=== PATIENT | female | born 1955 | race American Indian/Alaskan Native ===

== ENCOUNTER 2022-03-17 07:33 | Emergency (ER) | payer MEDICARE ==
--- NOTE | 2022-03-17 09:00 | Emergency Department Report ---
ED Medical Clearance HPI - General Chief complaint: Medical Clearance Stated complaint: MEDICAL CLEARANCE FOR REHAB Time Seen by Provider: 03/17/22 08:59 Source: patient, EMS Mode of arrival: Stretcher Limitations: No Limitations - History of Present Illness Initial comments: PT PICKED UP FROM [facility]-NEED MED CLEARANCE FOR [facility] RE[facility]. LAST USE 2 D AYS AGO, WHEN ASKED HOW OFTEN PT USES [facility], STATED "WHENEVER I CAN". Complaint: medical clearance request -: Gradual Alledged Intoxication: No Compliant with Home Medications: Yes Traumatic Symptoms: denies traumatic injury Treatments Prior to Arrival: none Home medications: Home Medications Medication Instructions Recorded Confirmed Last Taken Amlodipine Besylate [Norvasc] 03/30/13 03/30/13 06/14/13 09:00 glipiZIDE [glipiZIDE ER] 5 mg PO QAM 03/30/13 03/30/13 06/14/13 09:00 Gabapentin [Neurontin] 200 mg PO BID 06/14/13 06/14/13 06/09/13 Previous Rx's Medication Instructions Recorded Last Taken Type Benzonatate [Tessalon Perle] 100 mg PO TID PRN #14 capsule 06/15/13 Unknown Rx Butalb/Acetamin/Caff 50-325-40 1 each PO Q4H PRN #20 tablet 06/15/13 Unknown Rx [Fioricet] Allergies/Adverse reactions: Allergies Allergy/AdvReac Type Severity Reaction Status Date / Time ibuprofen [From Motrin] Allergy Anaphylaxis Verified 03/17/22 07:47 NSAIDS (Non-Steroidal Allergy Anaphylaxis Verified 03/17/22 07:47 Anti-Inflamma ED Review of Systems ROS: Stated complaint: MEDICAL CLEARANCE FOR REHAB Other details as noted in HPI Comment: All other systems reviewed and negative ED Past Medical Hx - Past Medical History Previous Medical History?: Yes Hx Hypertension: Yes Hx CVA: No Hx Heart Attack/AMI: No Hx Congestive Heart Failure: No Hx Diabetes: Yes Hx Deep Vein Thrombosis: No Hx Pulmonary Embolism: No Hx GERD: No Hx Liver Disease: No Hx Renal Disease: No Hx Sickle Cell Disease: No Hx Arthritis: No Hx Headaches / Migraines: No Hx Seizures: No Hx Kidney Stones: No Hx Psychiatric Treatment: No Hx Asthma: No Hx COPD: No Hx Tuberculosis: No Hx Dementia: No Hx HIV: No - Surgical History Past Surgical History?: Yes Hx Coronary Stent: No Hx Open Heart Surgery: No Hx Pacemaker: No Hx Internal Defibrillator: No Hx Cholecystectomy: No Hx Appendectomy: No Hx Breast Surgery: No Additional Surgical History: Right wrist Surgery 2009 - Family History Family history: no significant - Social History Smoking Status: Current Every Day Smoker Substance Use Type: None - Medications Home Medications: Home Medications Medication Instructions Recorded Confirmed Last Taken Type Amlodipine Besylate [Norvasc] 03/30/13 03/30/13 06/14/13 09:00 History glipiZIDE [glipiZIDE ER] 5 mg PO QAM 03/30/13 03/30/13 06/14/13 09:00 History Gabapentin [Neurontin] 200 mg PO BID 06/14/13 06/14/13 06/09/13 History Benzonatate [Tessalon Perle] 100 mg PO TID PRN #14 capsule 06/15/13 Unknown Rx Butalb/Acetamin/Caff 50-325-40 1 each PO Q4H PRN #20 tablet 06/15/13 Unknown Rx [Fioricet] ED Physical Exam - General Limitations: No Limitations General appearance: alert, in no apparent distress - Head Head exam: Present: atraumatic, normocephalic - Eye Eye exam: Present: normal appearance - ENT ENT exam: Present: mucous membranes moist - Neck Neck exam: Present: normal inspection - Respiratory Respiratory exam: Present: normal lung sounds bilaterally. Absent: respiratory distress - Cardiovascular Cardiovascular Exam: Present: regular rate, normal rhythm. Absent: systolic murmur, diastolic murmur, rubs, gallop - GI/Abdominal GI/Abdominal exam: Present: soft, normal bowel sounds - Extremities Exam Extremities exam: Present: normal inspection - Back Exam Back exam: Present: normal inspection - Neurological Exam Neurological exam: Present: alert, oriented X3 - Psychiatric Psychiatric exam: Present: normal affect, normal mood - Skin Skin exam: Present: warm, dry, intact, normal color. Absent: rash ED Course Vital Signs 03/17/22 07:45 Temperature 98.3 F Pulse Rate 75 Respiratory 14 Rate Blood Pressure 225/102 [Left] O2 Sat by Pulse 99 Oximetry ED Medical Decision Making - Lab Data Result diagrams: 03/17/22 09:08 03/17/22 09:08 - Medical Decision Making Vital Signs 03/17/22 07:45 Temperature 98.3 F Pulse Rate 75 Respiratory 14 Rate Blood Pressure 225/102 [Left] O2 Sat by Pulse 99 Oximetry Lab Results 03/17/22 03/17/22 03/17/22 Range/Units 09:08 09:08 09:08 WBC 4.7 (4.5-11.0) K/mm3 RBC 3.88 (3.65-5.03) M/mm3 Hgb 11.6 (10.1-14.3) gm/dl Hct 35.4 (30.3-42.9) % MCV 91 (79-97) fl MCH 30 (28-32) pg MCHC 33 (30-34) % RDW 15.5 H (13.2-15.2) % Plt Count 230 (140-440) K/mm3 Lymph % (Auto) 23.6 (13.4-35.0) % [place] % (Auto) 8.8 H (0.0-7.3) % Eos % (Auto) 4.1 (0.0-4.3) % Baso % (Auto) 1.1 (0.0-1.8) % Lymph # (Auto) 1.1 L (1.2-5.4) K/mm3 [place] # (Auto) 0.4 (0.0-0.8) K/mm3 Eos # (Auto) 0.2 (0.0-0.4) K/mm3 Baso # (Auto) 0.1 (0.0-0.1) K/mm3 Seg Neutrophils % 62.4 (40.0-70.0) % Seg Neutrophils # 2.9 (1.8-7.7) K/mm3 Sodium 138 (137-145) mmol/L Potassium 3.9 (3.6-5.0) mmol/L Chloride 104.2 (98-107) mmol/L Carbon Dioxide 20 L (22-30) mmol/L Anion Gap 18 mmol/L BUN 27 H (7-17) mg/dL Creatinine 2.2 H (0.6-1.2) mg/dL Estimated GFR 27 ml/min BUN/Creatinine Ratio 12 % Glucose 97 (65-100) mg/dL Calcium 8.5 (8.4-10.2) mg/dL Total Bilirubin 0.90 (0.1-1.2) mg/dL AST 39 (5-40) units/L ALT 26 (7-56) units/L Alkaline Phosphatase 223 H (35-129) units/L Total Protein 8.0 (6.3-8.2) g/dL Albumin 3.5 L (3.9-5) g/dL Albumin/Globulin Ratio 0.8 % TSH 2.390 (0.270-4.200) mlU/mL Salicylates (2.8-20.0) mg/dL Acetaminophen (10.0-30.0) ug/mL Plasma/Serum Alcohol (0-0.07) % 03/17/22 03/17/22 03/17/22 Range/Units 09:08 09:08 09:08 WBC (4.5-11.0) K/mm3 RBC (3.65-5.03) M/mm3 Hgb (10.1-14.3) gm/dl Hct (30.3-42.9) % MCV (79-97) fl MCH (28-32) pg MCHC (30-34) % RDW (13.2-15.2) % Plt Count (140-440) K/mm3 Lymph % (Auto) (13.4-35.0) % [place] % (Auto) (0.0-7.3) % Eos % (Auto) (0.0-4.3) % Baso % (Auto) (0.0-1.8) % Lymph # (Auto) (1.2-5.4) K/mm3 [place] # (Auto) (0.0-0.8) K/mm3 Eos # (Auto) (0.0-0.4) K/mm3 Baso # (Auto) (0.0-0.1) K/mm3 Seg Neutrophils % (40.0-70.0) % Seg Neutrophils # (1.8-7.7) K/mm3 Sodium (137-145) mmol/L Potassium (3.6-5.0) mmol/L Chloride (98-107) mmol/L Carbon Dioxide (22-30) mmol/L Anion Gap mmol/L BUN (7-17) mg/dL Creatinine (0.6-1.2) mg/dL Estimated GFR ml/min BUN/Creatinine Ratio % Glucose (65-100) mg/dL Calcium (8.4-10.2) mg/dL Total Bilirubin (0.1-1.2) mg/dL AST (5-40) units/L ALT (7-56) units/L Alkaline Phosphatase (35-129) units/L Total Protein (6.3-8.2) g/dL Albumin (3.9-5) g/dL Albumin/Globulin Ratio % TSH (0.270-4.200) mlU/mL Salicylates < 0.3 L (2.8-20.0) mg/dL Acetaminophen 5.0 L (10.0-30.0) ug/mL Plasma/Serum Alcohol < 0.01 (0-0.07) % ED Disposition Clinical Impression: Medical clearance for psychiatric admission Disposition: 30 STILL A PATIENT Is pt being admited?: No Does the pt Need Aspirin: No Condition: Stable Time of Disposition: 17:00
[2022-03-17 09:35] LABS: Basophils # (Auto) 0.1 K/mm3 (0.0-0.1); Basophils % (Auto) 1.1 % (0.0-1.8); Eosinophils # (Auto) 0.2 K/mm3 (0.0-0.4); Eosinophils % (Auto) 4.1 % (0.0-4.3); Hematocrit 35.4 % (30.3-42.9); Hemoglobin 11.6 gm/dl (10.1-14.3); Lymphocytes # (Auto) 1.1 K/mm3 (1.2-5.4); Lymphocytes % (Auto) 23.6 % (13.4-35.0); Mean Corpuscular HGB Conc 33 % (30-34); Mean Corpuscular Volume 91 fl (79-97); Monocytes # (Auto) 0.4 K/mm3 (0.0-0.8); Monocytes % (Auto) 8.8 % (0.0-7.3); Platelet Count 230 K/mm3 (140-440); Red Blood Count 3.88 M/mm3 (3.65-5.03); Red Cell Distribution Width 15.5 % (13.2-15.2)
[2022-03-17 09:56] LABS: Albumin 3.5 g/dL (3.9-5); Calcium 8.5 mg/dL (8.4-10.2)
[2022-03-18] MEDS ORDERED: MORPHINE 2 MG/1 ML INJ IM ONE (02:45)
[2022-03-18] MEDS ORDERED: ONDANSETRON 4 MG/2 ML INJ IM ONE (02:46)
--- NOTE | 2022-03-18 02:54 | Emergency Department Report ---
ED Medical Clearance HPI - General Chief complaint: Medical Clearance Stated complaint: MEDICAL CLEARANCE FOR REHAB Time Seen by Provider: 03/17/22 08:59 Source: patient, EMS Mode of arrival: Stretcher - History of Present Illness Initial comments: 66 yo F who present with medical clearance as she reports depression and anxiety. Pt also mentioned that she slipped and fell while trying to sit on a chair. She recently fall around 8/4 and was diagnosed with fx L4 &5 and still we aring brace. No urinary retention or bowel loss reported. No other modifying or associated factors noted. Alledged Intoxication: No Compliant with Home Medications: Yes Traumatic Symptoms: denies traumatic injury Treatments Prior to Arrival: none Home medications: Home Medications Medication Instructions Recorded Confirmed Last Taken Amlodipine Besylate [Norvasc] 03/30/13 03/30/13 06/14/13 09:00 glipiZIDE [glipiZIDE ER] 5 mg PO QAM 03/30/13 03/30/13 06/14/13 09:00 Gabapentin [Neurontin] 200 mg PO BID 06/14/13 06/14/13 06/09/13 Previous Rx's Medication Instructions Recorded Last Taken Type Benzonatate [Tessalon Perle] 100 mg PO TID PRN #14 capsule 06/15/13 Unknown Rx Butalb/Acetamin/Caff 50-325-40 1 each PO Q4H PRN #20 tablet 06/15/13 Unknown Rx [Fioricet] Allergies/Adverse reactions: Allergies Allergy/AdvReac Type Severity Reaction Status Date / Time ibuprofen [From Motrin] Allergy Anaphylaxis Verified 03/17/22 07:47 NSAIDS (Non-Steroidal Allergy Anaphylaxis Verified 03/17/22 07:47 Anti-Inflamma ED Review of Systems ROS: Stated complaint: MEDICAL CLEARANCE FOR REHAB Other details as noted in HPI Comment: All other systems reviewed and negative Musculoskeletal: back pain Psychiatric: anxiety, depression ED Past Medical Hx - Past Medical History Previous Medical History?: Yes Hx Hypertension: Yes Hx CVA: No Hx Heart Attack/AMI: No Hx Congestive Heart Failure: No Hx Diabetes: Yes Hx Deep Vein Thrombosis: No Hx Pulmonary Embolism: No Hx GERD: No Hx Liver Disease: No Hx Renal Disease: No Hx Sickle Cell Disease: No Hx Arthritis: No Hx Headaches / Migraines: No Hx Seizures: No Hx Kidney Stones: No Hx Psychiatric Treatment: No Hx Asthma: No Hx COPD: No Hx Tuberculosis: No Hx Dementia: No Hx HIV: No - Surgical History Past Surgical History?: Yes Hx Coronary Stent: No Hx Open Heart Surgery: No Hx Pacemaker: No Hx Internal Defibrillator: No Hx Cholecystectomy: No Hx Appendectomy: No Hx Breast Surgery: No Additional Surgical History: Right wrist Surgery 2009 - Social History Smoking Status: Current Every Day Smoker Substance Use Type: None - Medications Home Medications: Home Medications Medication Instructions Recorded Confirmed Last Taken Type Amlodipine Besylate [Norvasc] 03/30/13 03/30/13 06/14/13 09:00 History glipiZIDE [glipiZIDE ER] 5 mg PO QAM 03/30/13 03/30/13 06/14/13 09:00 History Gabapentin [Neurontin] 200 mg PO BID 06/14/13 06/14/13 06/09/13 History Benzonatate [Tessalon Perle] 100 mg PO TID PRN #14 capsule 06/15/13 Unknown Rx Butalb/Acetamin/Caff 50-325-40 1 each PO Q4H PRN #20 tablet 06/15/13 Unknown Rx [Fioricet] ED Physical Exam - General Limitations: No Limitations General appearance: alert, in no apparent distress - Head Head exam: Present: atraumatic, normal inspection - Eye Eye exam: Present: normal appearance Pupils: Present: normal accommodation - ENT ENT exam: Present: normal exam, normal orophraynx, mucous membranes moist - Neck Neck exam: Present: normal inspection, full ROM. Absent: tenderness - Respiratory Respiratory exam: Present: normal lung sounds bilaterally. Absent: respiratory distress, accessory muscle use - Cardiovascular Cardiovascular Exam: Present: regular rate, normal rhythm, normal heart sounds - GI/Abdominal GI/Abdominal exam: Present: soft, normal bowel sounds. Absent: distended, tenderness - Extremities Exam Extremities exam: Present: normal inspection, normal capillary refill - Back Exam Back exam: Present: normal inspection, tenderness (paraspine mild tenderness ) - Neurological Exam Neurological exam: Present: alert, oriented X3 - Psychiatric Psychiatric exam: Present: normal affect, normal mood - Skin Skin exam: Present: warm, normal color ED Course Vital Signs 03/17/22 03/18/22 07:45 03:12 Temperature 98.3 F Pulse Rate 75 Respiratory 14 18 Rate Blood Pressure 225/102 [Left] O2 Sat by Pulse 99 Oximetry ED Medical Decision Making - Lab Data Result diagrams: 03/17/22 09:08 03/17/22 09:08 - Radiology Data FINDINGS: ALIGNMENT: No significant abnormality of alignment. VERTEBRAL BODIES: Compression deformity of L2 is demonstrated. Vertebral bodies otherwise appear intact. DISC SPACES: Negative disc phenomenon present at L1-2 and L3-4. POSTERIOR ELEMENTS AND CENTRAL CANAL: Minimal bony retropulsion at L1-L2. No severe central stenosis. Mild/moderate central stenosis at L4-5. SIGNIFICANT LEVEL BY LEVEL FINDINGS: No significant abnormality. INTRA THORACIC / INTRA-ABDOMINAL: Nonspecific twisting of mesenteric vessels. SOFT TISSUES AND MUSCULATURE: No significant abnormality. IMPRESSION: 1. L2 compression deformity with mild bony retropulsion of the posterior superior endplate at L1- L2. 2. Other findings as detailed. - Medical Decision Making here with feeling of depression and anxiety -- with fall and back pain with recent fx -- will order CT lumbar and routine psych labs with consult for mental evaluation -- given in the meantime morphine and zofran Lab reviewed and noted with slightly elevated BUN/Cr -- likely as a result of dehydration -- given ivf ns 1L bolus x 1-- CT lumbar noted with compression fx of L2 -- likely the same as noted on 02/26 after her initial fall-- Pt is cleared and ready to be evaluated by mental health... ED Disposition Clinical Impression: Medical clearance for psychiatric admission, Back pain at L4-L5 level Depression Qualifiers: Depression Type: unspecified Qualified Code(s): F32.A - Depression, unspecified Compression fracture of L2 lumbar vertebra Qualifiers: Encounter type: subsequent encounter Fracture healing: with routine healing Qualified Code(s): S32.020D - Wedge compression fracture of second lumbar vertebra, subsequent encounter for fracture with routine healing Disposition: [address] [place] [address] Is pt being admited?: No Does the pt Need Aspirin: No Condition: Stable
--- NOTE | 2022-03-18 03:11 | Cat Scan Report ---
CT LUMBAR SPINE WITHOUT CONTRAST INDICATION / CLINICAL INFORMATION: fall with lower back pain s/p recent L4-5 fx. TECHNIQUE: Axial CT images were obtained through the lumbar spine. Sagittal and coronal reformatted i mages were produced. All CT scans at this location are performed using CT dose reduction for ALARA by means of automated exposure control. COMPARISON: None available. FINDINGS: ALIGNMENT: No significant abnormality of alignment. VERTEBRAL BODIES: Compression deformity of L2 is demonstrated. Vertebral bodies otherwise appear inta ct. DISC SPACES: Negative disc phenomenon present at L1-2 and L3-4. POSTERIOR ELEMENTS AND CENTRAL CANAL: Minimal bony retropulsion at L1-L2. No severe central stenosis. Mild/moderate central stenosis at L4-5. SIGNIFICANT LEVEL BY LEVEL FINDINGS: No significant abnormality. INTRA THORACIC / INTRA-ABDOMINAL: Nonspecific twisting of mesenteric vessels. SOFT TISSUES AND MUSCULATURE: No significant abnormality. IMPRESSION: 1. L2 compression deformity with mild bony retropulsion of the posterior superior endplate at L1-L2. 2. Other findings as detailed. Signer Name: Daniel Khalil II, MD Signed: 03/18/2022 3:07 AM Workstation Name: [id number]
[2022-03-18] MEDS ORDERED: SODIUM CHLORIDE 0.9% 1000 ML 1,000 ML IV ONE (04:21)
[2022-03-18] MEDS ORDERED: oxyCODONE /ACETAMINOPHEN 5-325MG TAB PO ONE (05:56)
--- NOTE | 2022-03-18 12:37 | Consultation ---
History of Present Illness - Reason for Consult Consult date: 03/18/22 Reason for consult: mental health evaluation - History of Present Psychiatric Illness ED NOTE: 66 yo F who present with medical clearance as she reports depression and anxiety. Pt also mentioned that she slipped and fell while trying to sit on a chair. She recently fall around 02/26 and was diagnosed with fx L4 &5 and still wearing brace. No urinary retention or bowel loss reported. No other modifying or associated factors noted. Patient is a 66 year-old female w/o previous psych diagnoses or treatment who presents to the ER for "medical clearance to go to detox." Patient reports using 1-2 "Tylenol number 3" every day for the last 40 years. Patient reports taking her daughter's medications and various other sources. Patient reports feeling better now "I was detoxing really bad." Patient reports withdrawal symptoms of stomach cramps, diarrhea, cold sweats, and craving. Patient reports being "in lots of pain the last 2 days," following fracture of L5 and L4 vertebrae. Patient reports breaking her right arm 10 days ago. Patient denies depressive sx. Patient denies SI HI AVH. PAST PSYCHIATRIC HISTORY: Diagnoses: Opiate abuse Suicide attempts or Self-harm behavior: Denies Prior psychiatric hospitalizations: No Substance Abuse history: opiates Previous psychiatric medications tried: None Outpatient treatment: None PAST MEDICAL HISTORY: None reported Family Psychiatric History: None reported or documented SOCIAL HISTORY Marital Status: Living Arrangements: Lives with daughter Employment Status: Late 's SSI - unemployed Access to guns/weapons: Denies Education: 1 year college History of Abuse: No Legal History: Unknown REVIEW OF SYSTEMS Constitutional: Negative for weight loss ENT: Negative for stridor Respiratory: Negative for cough or hemoptysis All other systems reviewed and are negative MENTAL STATUS EXAMINATION General Appearance and Behavior: Age appropriate, good hygiene, wearing appropriate clothes, cooperative; wearing cast on left arm Cooperation: cooperative Psychomotor Behavior: Normal Mood: "better," Affect and affective range:congruent Thought Process:Goal directed Thought Content: Reality oriented Speech: Normal Intellectual Functioning: Average Suicidal Ideation: Denies Homicidal Ideation: Denies Hallucination: Denies Impulse Control: Normal Insight and Judgment: limited insight and poor judgment Memory: Intact Attention:Attentive Orientation: Alert and oriented Diagnoses: (1) Opiate abuse Treatment Plan: Continuing home meds Patient should be compliant with medications and not to use drugs and not to drink alcohol. PSYCHOTHERAPY: Supportive psychotherapy provided MEDICAL: Per primary team DELIRIUM PRECAUTIONS: Please re-orient patient frequently, keep lights on during the day, and minimize benzodiazepines and opiates as these medications could worsen patient's confusion. VETERINARIAN: Per medical team DISPOSITION: Do not recommend acute inpatient psychiatric hospitalization at this time. The plastic mould maker will provide patient with psychiatric outpatient resources. FOLLOW-UP: Will sign off. Thank you for the consult. Please contact with any questions and/or concerns. Case staffed with Dr. Shen Medications and Allergies Allergies Allergy/AdvReac Type Severity Reaction Status Date / Time ibuprofen [From Motrin] Allergy Anaphylaxis Verified 03/17/22 07:47 NSAIDS (Non-Steroidal Allergy Anaphylaxis Verified 03/17/22 07:47 Anti-Inflamma Home Medications Medication Instructions Recorded Confirmed Last Taken Type Amlodipine Besylate [Norvasc] 03/30/13 03/30/13 06/14/13 09:00 History glipiZIDE [glipiZIDE ER] 5 mg PO QAM 03/30/13 03/30/13 06/14/13 09:00 History Gabapentin [Neurontin] 200 mg PO BID 06/14/13 06/14/13 06/09/13 History Benzonatate [Tessalon Perle] 100 mg PO TID PRN #14 capsule 06/15/13 Unknown Rx Butalb/Acetamin/Caff 50-325-40 1 each PO Q4H PRN #20 tablet 06/15/13 Unknown Rx [Fioricet] Mental Status Exam - Vital signs Last Vital Signs Temp 98.3 F 03/17/22 07:45 Pulse 82 03/18/22 11:47 Resp 18 03/18/22 11:47 BP 150/77 03/18/22 11:30 Pulse Ox 99 03/18/22 11:30 Results Result Diagrams: 03/17/22 09:08 03/17/22 09:08 All other labs normal.
[2022-03-18 13:40] VITALS: BP 161/79
== END 2022-03-18 15:45 | disposition home or self-care (01) ==
LOC: ED 07:33
DX: Z13.30 Encounter for screening examination for mental health and behavioral disorders, unspecified (principal); M54.2 Cervicalgia; F32.A Depression, unspecified; X58.XXXA Exposure to other specified factors, initial encounter; F17.200 Nicotine dependence, unspecified, uncomplicated
CPT/HCPCS: 36415; 72131; 80053; 84443; 85025; 96361; 96372; 96374; 99284; J2270; J2405; J3490; J7030; 80320; G0480

== ENCOUNTER 2022-04-02 15:42 | Emergency (ER) | payer MEDICARE ==
[2022-04-02] MEDS ORDERED: FAMOTIDINE 20 MG/2 ML INJ IV ONE (16:43)
[2022-04-02] MEDS ORDERED: cloNIDine 0.1 MG TAB PO ONE ×2 (16:43→18:06)
[2022-04-02] MEDS ORDERED: dexAMETHasone 4 MG/ML VIAL IV ONE (16:43)
[2022-04-02] MEDS ORDERED: diphenhydrAMINE 50 MG/ML VIAL IV ONE (16:43)
--- NOTE | 2022-04-02 17:49 | Emergency Department Report ---
HPI - General Chief Complaint: Skin Rash PUI?: No Time Seen by Provider: 04/02/22 16:13 - HPI HPI: 66-year-old female with multiple medical comorbidities presents for evaluation of itching and painful rash to her arms legs abdomen and face. Patient reports she moved into a [facility] house 1 day ago and states that she saw bugs "of all different sizes" biting her. She states she began having swelling in her face as well as itching and pain to the rashes. She states that her roommate states "they may be bedbugs" the patient states she does not know. She denies any fevers chills joint pain chest pain shortness of breath difficulty breathing or palpitations. No sensation as though her throat is swollen or closing. Pain c urrently 6 out of 10. Patient also noted to be hypertensive on triage vitals and she states she has not taken her blood pressure medication in 2 days. She denies any other symptoms. ED Past Medical Hx - Past Medical History Previous Medical History?: Yes Hx Hypertension: Yes Hx CVA: No Hx Heart Attack/AMI: No Hx Congestive Heart Failure: No Hx Diabetes: Yes Hx Deep Vein Thrombosis: No Hx Pulmonary Embolism: No Hx GERD: No Hx Liver Disease: No Hx Renal Disease: No Hx Sickle Cell Disease: No Hx Arthritis: No Hx Headaches / Migraines: No Hx Seizures: No Hx Kidney Stones: No Hx Psychiatric Treatment: No Hx Asthma: No Hx COPD: No Hx Tuberculosis: No Hx Dementia: No Hx HIV: No - Surgical History Hx Coronary Stent: No Hx Open Heart Surgery: No Hx Pacemaker: No Hx Internal Defibrillator: No Hx Cholecystectomy: No Hx Appendectomy: No Hx Breast Surgery: No Additional Surgical History: Right wrist Surgery 2009 - Social History Smoking Status: Current Every Day Smoker Substance Use Type: None - Medications Home Medications: Home Medications Medication Instructions Recorded Confirmed Last Taken Type Amlodipine Besylate [Norvasc] 03/30/13 03/30/13 06/14/13 09:00 History glipiZIDE [glipiZIDE ER] 5 mg PO QAM 03/30/13 03/30/13 06/14/13 09:00 History Gabapentin [Neurontin] 200 mg PO BID 06/14/13 06/14/13 06/09/13 History Benzonatate [Tessalon Perle] 100 mg PO TID PRN #14 capsule 06/15/13 Unknown Rx Butalb/Acetamin/Caff 50-325-40 1 each PO Q4H PRN #20 tablet 06/15/13 Unknown Rx [Fioricet] Calamine/Zinc Oxide [Calamine 180 ml TP 4XD 7 Days #180 04/03/22 Unknown Rx Lotion] Famotidine [Acid Controller] 20 mg PO BID #14 04/03/22 Unknown Rx methylPREDNISolone [Medrol 4MG 4 mg PO DAILY 6 Days #21 04/03/22 Unknown Rx DOSEPAK (21 tabs)] ED Review of Systems ROS: Stated complaint: ALLERGIC RX Other details as noted in HPI Comment: All other systems reviewed and negative Physical Exam - Physical Exam Vital Signs: Vital Signs 04/02/22 15:43 Temperature 98.8 F Pulse Rate 84 Respiratory 16 Rate Blood Pressure 170/90 [Left] O2 Sat by Pulse 98 Oximetry General: Gen: pt is well appearing, no acute distress, speaking in full sentences, no drooling no stridor no respiratory distress, breathing unlabored, nontoxic- appearing, patient is actually scratching her face arms and legs and abdomen during HPI physical exam HEENT: Normocephalic atraumatic pupils equally round and reactive to light extraocular muscles intact sclera anicteric uvula midline without edema, no angioedema no macroglossia no Everardo's angina, tonsils symmetric and nonenlarge d, patient noted to have bilateral periorbital edema with mild erythema, no proptosis, no periorbital cellulitis, Neck: Full range of motion, no midline spinal tenderness palpation, no JVD, no carotid bruits, no nuchal rigidity CVS: S1-S2 regular rate and rhythm with no gallops rubs or murmurs, chest wall nontender Pulmonary: Clear to auscultation bilaterally, no wheezes rales or rhonchi Abdomen: Soft nondistended nontender no guarding or rebound tenderness, no palpable deformities or step-offs, normal active bowel sounds, no hepatosplenomegaly, no pulsatile masses : Deferred Extremities: No cyanosis no clubbing no edema, intact distal peripheral pulses, Integumentary: Skin is diffusely covered in multiple areas of urticaria, no petechia no purpura no abscess no lacerations no evidence of trauma no evidence of infection Neuro: Patient is awake alert and oriented to person place time situation, mentating well, cranial nerves II through XII intact, no focal neurodeficits, sensation grossly tact Psych: Calm cooperative, mood affect normal ED Course Vital Signs 04/02/22 15:43 Temperature 98.8 F Pulse Rate 84 Respiratory 16 Rate Blood Pressure 170/90 [Left] O2 Sat by Pulse 98 Oximetry - Reevaluation(s) Reevaluation #1: 04/02/22 18:06 Patient appears more comfortable, she is mentating well, moving extremities, Reevaluation #2: 04/03/22 00:36 Patient reassessed. She is comfortable and well-appearing, urticaria has significantly improved. She is protecting her airway. Vitals are stable. She denies any difficulty breathing or shortness of breath or any other symptoms. ED Medical Decision Making - Lab Data Result diagrams: 04/02/22 17:53 04/02/22 17:53 - Medical Decision Making A 66-year-old female with multiple medical comorbidities presents with urticaria to chest arms back legs and face status post being bitten by unspecified insects. Vital signs stable. Patient hypertensive on arrival and confirms that she has not taken her blood pressure medication in 2 days. She denies any symptoms consistent with or concerning for endorgan damage. Labs reviewed and are at patient's documented baseline per review of her electronic medical r ecord. She was given Solu-Medrol, Benadryl, famotidine, and observed for several hours. Her urticaria significantly improved. She was given Toradol for pain. With respect to her blood pressure she is clonidine and subsequently given labetalol for blood pressure improvement. Patient's blood pressure significantly improved and she remained hemodynamically stable and neurovascular intact. She denies any new or evolving symptoms. Patient will be discharged to home with a prescription for Medrol Dosepak, calamine lotion, and famotidine. She is advised to take [id number] Benadryl as needed for itching. No further emergent work-up is warranted. Patient is deemed stable for discharge to home. Prior to discharge she was given strict verbal and written return precautions. She verbalized understanding agreement with current care. Critical Care Time: No Critical care attestation.: If time is entered above; I have spent that time in minutes in the direct care of this critically ill patient, excluding procedure time. ED Disposition Clinical Impression: Urticaria, Uncontrolled hypertension, Bug bite of face without infection Disposition: 01 HOME / SELF CARE / HOMELESS Is pt being admited?: No Does the pt Need Aspirin: No Condition: Stable Instructions: Hives, Bedbugs, [id number], Rash, Adult, Hypertension, Adult, Hypertension (ED) Additional Instructions: It is extremely important that you take your blood pressures as directed every day. You may take ibuprofen as needed for pain. Alternate ibuprofen with acetaminophen for additional pain management. For the next several days, please take the for medication: 1. Medrol dose pack (x 6 days) 2. Famotidine 20mg by mouth twice a day (x 6 days) 3. Benadryl 25 mg by mouth every 6 hours as needed for itching You may also apply calamine lotion to your skin to help decrease any pain itching and inflammation may experience. It is strongly recommended that you wash your sheets with hot water and continue to wash your hands thoroughly with warm soap and water. Return to the nearest emergency department soon as possible if you develop severe or worsening pain, spreading redness, severe headaches, vomiting, inability tolerate liquids or solids, shortness of breath, fevers or chills, or if any other new worrisome symptoms develop. Prescriptions: Famotidine [Acid Controller] 20 mg PO BID #14 Calamine/Zinc Oxide [Calamine Lotion] 180 ml TP 4XD 7 Days #180 methylPREDNISolone [Medrol 4MG DOSEPAK (21 tabs)] 4 mg PO DAILY 6 Days #21 Referrals: LAKESHA PAREKH MD [Primary Care Provider] - 3-5 Days
[2022-04-02 18:34] LABS: Basophils % (Auto) 0.4 % (0.0-1.8); Eosinophils # (Auto) 0.1 K/mm3 (0.0-0.4); Eosinophils % (Auto) 2.4 % (0.0-4.3); Hematocrit 32.5 % (30.3-42.9); Hemoglobin 10.8 gm/dl (10.1-14.3); Lymphocytes # (Auto) 0.7 K/mm3 (1.2-5.4); Lymphocytes % (Auto) 17.8 % (13.4-35.0); Mean Corpuscular HGB Conc 33 % (30-34); Mean Corpuscular Volume 89 fl (79-97); Monocytes # (Auto) 0.3 K/mm3 (0.0-0.8); Monocytes % (Auto) 8.9 % (0.0-7.3); Platelet Count 167 K/mm3 (140-440); Red Blood Count 3.64 M/mm3 (3.65-5.03); Red Cell Distribution Width 15.3 % (13.2-15.2)
[2022-04-02 18:40] LABS: Calcium 8.1 mg/dL (8.4-10.2)
[2022-04-03] MEDS ORDERED: KETOROLAC 30 MG/1 ML INJ IV ONE (00:31)
[2022-04-03 01:23] VITALS: BP 194/90
== END 2022-04-03 01:33 | disposition home or self-care (01) ==
LOC: ED 15:42
DX: L50.9 Urticaria, unspecified (principal); I10 Essential (primary) hypertension; S00.86XA Insect bite (nonvenomous) of other part of head, initial encounter; W57.XXXA Bitten or stung by nonvenomous insect and other nonvenomous arthropods, initial encounter; Y93.89 Activity, other specified; Y92.89 Other specified places as the place of occurrence of the external cause; Y99.8 Other external cause status; F17.200 Nicotine dependence, unspecified, uncomplicated; E11.9 Type 2 diabetes mellitus without complications
CPT/HCPCS: 36415; 80048; 85025; 96374; 96375; 96376; 99284; J1100; J1200; J1885; J3490

== ENCOUNTER 2022-04-09 07:21 | Emergency (ER) | payer MEDICARE ==
[2022-04-09] MEDS ORDERED: ONDANSETRON 4 MG/2 ML INJ IV ONE (08:02)
[2022-04-09] MEDS ORDERED: SODIUM CHLORIDE 0.9% 1000 ML 1,000 ML IV ONE (08:02)
[2022-04-09] MEDS ORDERED: MORPHINE 4 MG/1 ML INJ IV ONE (08:02)
--- NOTE | 2022-04-09 08:14 | Emergency Department Report ---
ED N/V/D HPI - General Chief complaint: Nausea/Vomiting/Diarrhea Stated complaint: VOMITING BLOOD Time Seen by Provider: 04/09/22 07:56 Source: patient, EMS Mode of arrival: Ambulatory Limitations: No Limitations - History of Present Illness Initial comments: 66 yo F who present with concern with coffee ground emesis that started this morning. Pt reports that someone likely gave her NSAIDs last night which she is allergic to. She has had this happened to her in the past that required admission. Vomiting is associated with nausea. No diarrhea reported. No fever or chills noted. Pt also denies any alcohol drinking. Pt also mentioned epigastric pain as well. No other modifying or associated factors. MD complaint: nausea, vomiting, abdominal pain - Related Data Home Medications Medication Instructions Recorded Confirmed Last Taken Amlodipine Besylate [Norvasc] 03/30/13 03/30/13 06/14/13 09:00 glipiZIDE [glipiZIDE ER] 5 mg PO QAM 03/30/13 03/30/13 06/14/13 09:00 Gabapentin [Neurontin] 200 mg PO BID 06/14/13 06/14/13 06/09/13 Previous Rx's Medication Instructions Recorded Last Taken Type Benzonatate [Tessalon Perle] 100 mg PO TID PRN #14 capsule 06/15/13 Unknown Rx Butalb/Acetamin/Caff 50-325-40 1 each PO Q4H PRN #20 tablet 06/15/13 Unknown Rx [Fioricet] Calamine/Zinc Oxide [Calamine 180 ml TP 4XD 7 Days #180 04/03/22 Unknown Rx Lotion] Famotidine [Acid Controller] 20 mg PO BID #14 04/03/22 Unknown Rx methylPREDNISolone [Medrol 4MG 4 mg PO DAILY 6 Days #21 04/03/22 Unknown Rx DOSEPAK (21 tabs)] Omeprazole Magnesium [PriLOSEC Otc] 20 mg PO BID 30 Days #60 tab NS 04/09/22 Unknown Rx Ondansetron (Nf) [Zofran TAB] 8 mg PO Q8HR PRN 5 Days #15 tablet 04/09/22 Unknown Rx NS Permethrin 5% [Acticin 5% CREAM] 1 applicatio TP ONCE 1 Days #1 04/09/22 Unknown Rx tube NS Allergies Allergy/AdvReac Type Severity Reaction Status Date / Time ibuprofen [From Motrin] Allergy Anaphylaxis Verified 04/02/22 16:00 NSAIDS (Non-Steroidal Allergy Anaphylaxis Verified 04/02/22 16:00 Anti-Inflamma ED Review of Systems ROS: Stated complaint: VOMITING BLOOD Other details as noted in HPI Comment: All other systems reviewed and negative Gastrointestinal: abdominal pain, nausea, vomiting, hematemesis ED Past Medical Hx - Past Medical History Hx Hypertension: Yes Hx CVA: No Hx Heart Attack/AMI: No Hx Congestive Heart Failure: No Hx Diabetes: Yes Hx Deep Vein Thrombosis: No Hx Pulmonary Embolism: No Hx GERD: No Hx Liver Disease: No Hx Renal Disease: No Hx Sickle Cell Disease: No Hx Arthritis: No Hx Headaches / Migraines: No Hx Seizures: No Hx Kidney Stones: No Hx Psychiatric Treatment: No Hx Asthma: No Hx COPD: No Hx Tuberculosis: No Hx Dementia: No Hx HIV: No - Surgical History Hx Coronary Stent: No Hx Open Heart Surgery: No Hx Pacemaker: No Hx Internal Defibrillator: No Hx Cholecystectomy: No Hx Appendectomy: No Hx Breast Surgery: No Additional Surgical History: Right wrist Surgery 2010 - Social History Smoking Status: Current Every Day Smoker Substance Use Type: None - Medications Home Medications: Home Medications Medication Instructions Recorded Confirmed Last Taken Type Amlodipine Besylate [Norvasc] 03/30/13 03/30/13 06/14/13 09:00 History glipiZIDE [glipiZIDE ER] 5 mg PO QAM 03/30/13 03/30/13 06/14/13 09:00 History Gabapentin [Neurontin] 200 mg PO BID 06/14/13 06/14/13 06/09/13 History Benzonatate [Tessalon Perle] 100 mg PO TID PRN #14 capsule 06/15/13 Unknown Rx Butalb/Acetamin/Caff 50-325-40 1 each PO Q4H PRN #20 tablet 06/15/13 Unknown Rx [Fioricet] Calamine/Zinc Oxide [Calamine 180 ml TP 4XD 7 Days #180 04/03/22 Unknown Rx Lotion] Famotidine [Acid Controller] 20 mg PO BID #14 04/03/22 Unknown Rx methylPREDNISolone [Medrol 4MG 4 mg PO DAILY 6 Days #21 04/03/22 Unknown Rx DOSEPAK (21 tabs)] Omeprazole Magnesium [PriLOSEC Otc] 20 mg PO BID 30 Days #60 tab NS 04/09/22 Unknown Rx Ondansetron (Nf) [Zofran TAB] 8 mg PO Q8HR PRN 5 Days #15 tablet 04/09/22 Unknown Rx NS Permethrin 5% [Acticin 5% CREAM] 1 applicatio TP ONCE 1 Days #1 04/09/22 Unknown Rx tube NS ED Physical Exam - General Limitations: No Limitations General appearance: alert, in no apparent distress - ENT ENT exam: Present: mucous membranes dry - Neck Neck exam: Present: normal inspection, full ROM. Absent: tenderness - Respiratory Respiratory exam: Present: normal lung sounds bilaterally. Absent: respiratory distress, accessory muscle use - Cardiovascular Cardiovascular Exam: Present: regular rate, normal rhythm, normal heart sounds - GI/Abdominal GI/Abdominal exam: Present: soft, tenderness (epigastric tenderness to palpation ). Absent: distended - Extremities Exam Extremities exam: Present: normal inspection, normal capillary refill. Absent: tenderness, pedal edema - Back Exam Back exam: Absent: tenderness, CVA tenderness (R), CVA tenderness (L) - Neurological Exam Neurological exam: Present: alert, oriented X3 - Psychiatric Psychiatric exam: Present: normal affect, normal mood ED Course Vital Signs 04/09/22 04/09/22 04/09/22 07:30 08:59 09:16 Temperature 98.2 F Pulse Rate 104 H 101 H Respiratory 20 20 Rate Blood Pressure Blood Pressure 171/110 201/103 [Left] O2 Sat by Pulse 100 100 99 Oximetry 04/09/22 04/09/22 04/09/22 09:31 09:45 09:47 Temperature Pulse Rate 96 H 95 H 85 Respiratory 14 17 18 Rate Blood Pressure 201/103 201/103 Blood Pressure 177/105 [Left] O2 Sat by Pulse 99 99 99 Oximetry 04/09/22 04/09/22 04/09/22 10:01 10:15 10:31 Temperature Pulse Rate 94 H 119 H 98 H Respiratory 18 26 H 13 Rate Blood Pressure 201/103 177/103 177/103 Blood Pressure [Left] O2 Sat by Pulse 99 98 99 Oximetry 04/09/22 04/09/22 04/09/22 10:45 11:01 11:15 Temperature Pulse Rate 113 H 97 H 104 H Respiratory 20 17 23 Rate Blood Pressure 177/103 177/103 157/103 Blood Pressure [Left] O2 Sat by Pulse 99 98 98 Oximetry 04/09/22 04/09/22 04/09/22 11:20 11:31 11:45 Temperature Pulse Rate 67 98 H 100 H Respiratory 18 13 13 Rate Blood Pressure 179/114 168/123 Blood Pressure 154/85 [Left] O2 Sat by Pulse 99 98 98 Oximetry 04/09/22 04/09/22 04/09/22 12:01 12:15 12:31 Temperature Pulse Rate 94 H 98 H 88 Respiratory 17 22 14 Rate Blood Pressure 168/123 197/102 199/98 Blood Pressure [Left] O2 Sat by Pulse 96 97 98 Oximetry 04/09/22 04/09/22 04/09/22 12:45 13:01 13:15 Temperature Pulse Rate 100 H 91 H 82 Respiratory 24 25 H 15 Rate Blood Pressure 189/106 102/53 102/48 Blood Pressure [Left] O2 Sat by Pulse 99 99 99 Oximetry 04/09/22 13:31 Temperature Pulse Rate 84 Respiratory 13 Rate Blood Pressure 184/127 Blood Pressure [Left] O2 Sat by Pulse 99 Oximetry - Reevaluation(s) Reevaluation #1: 04/09/22 14:49 While i was talking to patient about her discharge she told me about needing something to help her with itching due to bedbug at her apartment. Will discharg e home permethrin topical -- ED Medical Decision Making - Lab Data Result diagrams: 04/09/22 08:11 04/09/22 08:11 - Radiology Data FINDINGS: Lung Bases: No acute findings. Mild emphysematous changes. Skeletal System: No acute abnormality. L2 compression fracture is unchanged. ABDOMEN: Liver: Hepatomegaly. No acute finding given noncontrast technique. Gallbladder: No significant abnormality. Bile Ducts: No significant abnormality. Adrenals: No significant abnormality. Right Kidney: No significant abnormality. Left Kidney: No significant abnormality. Pancreas: No significant abnormality. Spleen: No significant abnormality. Upper GI tract: No significant abnormality. Lymph Nodes: No significant adenopathy. Aorta: No significant abnormality. Additional Findings: No significant abnormality. PELVIS: Colon: No acute abnormality. Minimal diverticulosis is noted. Urinary Bladder and Distal Ureters: No significant abnormality. Appendix: Not visualized. Lymph Nodes: No significant adenopathy. Additional Findings: None. IMPRESSION: 1. Within the limitations of non contrast technique, no acute process in the a bdomen or pelvis. 2. Incidental findings, as above. - Medical Decision Making GI bleeding -- will go ahead and other routine labs including CBC, CMP to rule out any infectious process or anemia of blood loss-- in the meantime will start ivf ns bolus and order Morphine 4 mg, Zofran 4 mg IV and Protonix 80 mg IV x 1 for symptomatic treatment-- Labs reviewed and noted with unremarkable H&H at baseline-- she has been given protonix and zofran with improvement in vomiting-- this patient is safe to be discharge home considering no sign of acute bleeding at this point. Will also d/c home on prilosec with close follow up and to avoid nsaids-- Critical care attestation.: If time is entered above; I have spent that time in minutes in the direct care of this critically ill patient, excluding procedure time. ED Disposition Clinical Impression: Epigastric abdominal pain, Diverticulosis, Infected bedbug bite Hematemesis Qualifiers: Nausea presence: with nausea Qualified Code(s): K92.0 - Hematemesis GI bleeding Qualifiers: GI bleed type/associated pathology: unspecified gastrointestinal hemorrhage type Qualified Code(s): K92.2 - Gastrointestinal hemorrhage, unspecified Gastritis Qualifiers: Gastritis type: unspecified gastritis Chronicity: unspecified Gastritis bleeding: presence of bleeding unspecified Qualified Code(s): K29.70 - Gastritis, unspecified, without bleeding Disposition: 01 HOME / SELF CARE / HOMELESS Is pt being admited?: No Does the pt Need Aspirin: No Condition: Stable Instructions: Gastritis, Adult, [id number], Abdominal Pain, Adult, [id number] Additional Instructions: Avoid any heavy fatty or spicy meal as those could worsen your symptoms Increase your daily fluid to help your dehydration Take your antacid as prescribed to continue to help your symptoms Call and follow up with your doctor in 3-5 days for progress Please do not hesitate to call or return to ED if your symptoms worsen Prescriptions: Permethrin 5% [Acticin 5% CREAM] 1 applicatio TP ONCE 1 Days #1 tube NS Omeprazole Magnesium [PriLOSEC Otc] 20 mg PO BID 30 Days #60 tab NS Ondansetron (Nf) [Zofran TAB] 8 mg PO Q8HR PRN 5 Days #15 tablet NS PRN Reason: Nausea And Vomiting Referrals: LAKESHA PAREKH MD [Primary Care Provider] - 3-5 Days Time of Disposition: 13:54
[2022-04-09 08:27] LABS: Basophils % (Auto) 0.6 % (0.0-1.8); Eosinophils # (Auto) 0.4 K/mm3 (0.0-0.4); Hematocrit 33.9 % (30.3-42.9); Hemoglobin 11.1 gm/dl (10.1-14.3); Lymphocytes # (Auto) 1.2 K/mm3 (1.2-5.4); Lymphocytes % (Auto) 17.3 % (13.4-35.0); Mean Corpuscular HGB Conc 33 % (30-34); Mean Corpuscular Volume 89 fl (79-97); Monocytes # (Auto) 0.6 K/mm3 (0.0-0.8); Monocytes % (Auto) 8.7 % (0.0-7.3); Platelet Count 218 K/mm3 (140-440); Red Cell Distribution Width 15.9 % (13.2-15.2)
[2022-04-09 08:48] LABS: Albumin 3.1 g/dL (3.9-5)
[2022-04-09] MEDS ORDERED: PANTOPRAZOLE 80 MG in SODIUM CHLORIDE 0.9% 100 ML IV SCH (09:00)
--- NOTE | 2022-04-09 09:38 | Cat Scan Report ---
CT ABDOMEN AND PELVIS WITHOUT IV CONTRAST INDICATION: bloody emesis. COMPARISON: Lumbar spine CT 03/18/2022 TECHNIQUE: All CT scans at this facility use dose modulation, automated exposure control, iterative reconstructi on or weight based dosing, when appropriate, to reduce radiation dose to as low as reasonably achieva ble. FINDINGS: Lung Bases: No acute findings. Mild emphysematous changes. Skeletal System: No acute abnormality. L2 compression fracture is unchanged. ABDOMEN: Liver: Hepatomegaly. No acute finding given noncontrast technique. Gallbladder: No significant abnormality. Bile Ducts: No significant abnormality. Adrenals: No significant abnormality. Right Kidney: No significant abnormality. Left Kidney: No significant abnormality. Pancreas: No significant abnormality. Spleen: No significant abnormality. Upper GI tract: No significant abnormality. Lymph Nodes: No significant adenopathy. Aorta: No significant abnormality. Additional Findings: No significant abnormality. PELVIS: Colon: No acute abnormality. Minimal diverticulosis is noted. Urinary Bladder and Distal Ureters: No significant abnormality. Appendix: Not visualized. Lymph Nodes: No significant adenopathy. Additional Findings: None. IMPRESSION: 1. Within the limitations of non contrast technique, no acute process in the abdomen or pelvis. 2. Incidental findings, as above. Signer Name: Antwan Clayton MD Signed: 04/09/2022 9:34 AM Workstation Name: [id number]
[2022-04-09 12:30] LABS: Amorphous Crystals,Urine 1+; Bacteria,Urine 1+ /HPF (Negative)
[2022-04-09 13:04] LABS: Color,Urine Yellow (Yellow)
[2022-04-09 13:35] VITALS: BP 184/127
== END 2022-04-09 17:07 | disposition home or self-care (01) ==
LOC: ED 07:21
DX: K29.70 Gastritis, unspecified, without bleeding (principal); K92.0 Hematemesis; R10.13 Epigastric pain; B99.8 Other infectious disease; I10 Essential (primary) hypertension; E11.9 Type 2 diabetes mellitus without complications; F17.200 Nicotine dependence, unspecified, uncomplicated; Z88.6 Allergy status to analgesic agent; Z91.09 Other allergy status, other than to drugs and biological substances; Z79.899 Other long term (current) drug therapy
CPT/HCPCS: 36415; 74176; 80053; 81001; 83690; 85025; 96361; 96365; 96366; 96375; 99284; C9113; J2270; J2405; J7030; 80320; G0480